=== PATIENT | male | born 1985 | race Hispanic/Latino ===

== ENCOUNTER 2021-04-14 18:20 | Inpatient (IN) | payer SELFPAY ==
[2021-04-14] MEDS ORDERED: Lorazepam 2 MG/ML VIAL ONE (18:37)
[2021-04-14 19:04] LABS: Hemoglobin 8.9 g/dL (14.0-18.0); Mean Corpuscular HGB CONC 30.9 g/dL (32.0-36.0); Mean Corpuscular Hemoglobin 24.4 pg (27.0-31.0); Mean Corpuscular Volume 78.8 fL (78.0-98.0); RBC Distribution Width 33.9 % (11.5-14.5); Red Blood Cell (RBC) Count 3.65 mill/uL (4.70-6.10); White Blood Cell (WBC) Count 7.5 thou/uL (4.8-10.8)
[2021-04-14 19:05] LABS: #Basophils 0.1 thou/uL (0.0-0.2); #Eosinphils 0.1 thou/uL (0.0-0.7); #Lymphocytes 2.3 thou/uL (1.20-3.40); #Monocytes 1.1 thou/uL (0.11-0.59); %Basophils 0.8 % (0.0-1.0); %Eosinophils 0.8 % (0.0-10.0); %Lymphocytes 30.8 % (21.0-51.0); %Monocytes 14.2 % (0.0-10.0); %Neutrophils 53.5 % (42.0-75.0)
[2021-04-14] MEDS ORDERED: Diazepam 5 MG TAB ONE (19:05)
[2021-04-14 19:19] LABS: Bilirubin Negative (Negative); Blood, Urine Negative (Negative); Clarity Clear (Clear); Glucose, Urine (Dipstick) Normal (Negative); Ketone, Urine Negative (Negative); Leukocyte Negative Leu/uL (Negative); Nitrite Negative (Negative); Protein, Urine (Dipstick) Negative (Neg-Trace); Specific Gravity, Urine 1.001 (1.002-1.036); Urobilinogen Normal mg/dL (Less than 2); pH, Urine 7.5 (5.0-9.0)
[2021-04-14 19:20] LABS: ALT (SGPT) 126 U/L (8-55); AST (SGOT) 240 U/L (5-34); Acetaminophen Less than 6.0 mcg/mL (10.0-30.0); Albumin 3.7 g/dL (3.5-5.0); Alcohol Less than 10 mg/dL (Less than 10); Alkaline Phosphatase 109 U/L (40-110); Anion Gap 20 mmol/L (10-20); BUN (Urea Nitrogen) Less than 4 mg/dL (8.9-20.6); Bilirubin, Total 1.2 mg/dL (0.2-1.2); Calc. Creatinine Clearance 0 mL/min (70-130); Calcium 9.1 mg/dL (7.8-10.44); Carbon Dioxide 18 mmol/L (22-29); Chloride 97 mmol/L (98-107); Globulin 3.3 g/dL (2.4-3.5); Glucose 112 mg/dL (70-105); Lipase 250 U/L (8-78); Potassium 3.6 mmol/L (3.5-5.1); Salicylate Less than 8.0 mg/dL (15.0-30.0); Sodium 131 mmol/L (136-145)
[2021-04-14 19:26] LABS: Anisocytosis MODERATE=16-30 cells (100X) (0-5/hpf); Hypochromia SLIGHT = 6-15 cells (100X) (0-5/hpf); MDiff Complete? YES; Mean Platelet Volume 6.5 fL (7.4-10.4); Ovalocytes SLIGHT = 2-5 cells (100X) (0-1/hpf); Platelet Count 174 thou/uL (130-400); Platelet Morphology Comment Appears Adequate; Polychromasia SLIGHT = 2-3 cells (100X) (0-2/hpf)
[2021-04-14 19:27] LABS: Amphetamine Not Detected (NotDetected); Barbiturates Screen Detected (NotDetected); Benzodiazepine Screen Not Detected (NotDetected); Cocaine Metabolite Screen Not Detected (NotDetected); Methadone Not Detected (NotDetected); Methamphetamine Not Detected (NotDetected); Opiate Screen Not Detected (NotDetected); Oxycodone Screen Not Detected (NotDetected); Phencyclidine (PCP) Not Detected (NotDetected); THC/Cannabinoid Screen Not Detected (NotDetected); Tricyclic Screen Not Detected (NotDetected)
[2021-04-14 19:37] LABS: Magnesium 0.9 mg/dL (1.6-2.6)
[2021-04-14] MEDS ORDERED: Magnesium 2 GM/50 ML BAG (IN WATER) ONE (19:44)
[2021-04-14] MEDS ORDERED: Thiamine HCl 200 MG/2 ML VIAL SLOW IVP SCH (20:00)
[2021-04-14] MEDS ORDERED: Folic Acid 1 MG, Multivitamins, Adult 10 ML in Dextrose 5 %-0.45 % NaCl 1,000 ML IV SCH (20:00)
[2021-04-14] MEDS ORDERED: Ondansetron PF 4 MG/2 ML Vial IVP PRN (21:07)
[2021-04-14] MEDS ORDERED: Acetaminophen 325 MG TAB PO PRN (21:07)
[2021-04-14] MEDS ORDERED: Ondansetron ODT 4 MG TAB PO PRN (21:07)
[2021-04-14] MEDS ORDERED: Acetaminophen 650 MG Suppository PR PRN (21:07)
[2021-04-14] MEDS ORDERED: Lorazepam 2 MG/ML VIAL SLOW IVP PRN (21:11)
[2021-04-14] MEDS ORDERED: Electrolyte Replacement Protocol 1 EACH FS PRN (21:15)
[2021-04-14] MEDS ORDERED: Magnesium 2 GM/50 ML 2 GM in Premix Bag 1 BAG IVPB SCH (21:30)
[2021-04-14 22:10] LABS: Lactic Acid 2.1 mmol/L (0.5-2.2)
[2021-04-14 22:44] VITALS: BMI 24.0
[2021-04-14] MEDS ORDERED: levETIRAcetam in NS 500 MG in Premix Bag 1 BAG IVPB SCH (23:30)
[2021-04-15 08:03] LABS: Magnesium 2.3 mg/dL (1.6-2.6)
[2021-04-15 08:04] LABS: Iron 18 ug/dL (65-175); Iron Binding Capacity, Total 350 mcg/dL (261-462)
[2021-04-15 08:06] LABS: Anion Gap 14 mmol/L (10-20); BUN (Urea Nitrogen) Less than 4 mg/dL (8.9-20.6); Calc. Creatinine Clearance 146 mL/min (70-130); Calcium 9.2 mg/dL (7.8-10.44); Carbon Dioxide 23 mmol/L (22-29); Chloride 105 mmol/L (98-107); Glucose 79 mg/dL (70-105); Iron 17 ug/dL (65-175); Iron Binding Capacity, Total 346 mcg/dL (261-462); Potassium 3.9 mmol/L (3.5-5.1); Sodium 138 mmol/L (136-145)
[2021-04-15 08:19] LABS: Ferritin 66.54 ng/mL (22-322)
[2021-04-15 08:29] LABS: #Eosinphils 0.1 thou/uL (0.0-0.7); #Lymphocytes 1.3 thou/uL (1.20-3.40); #Monocytes 0.5 thou/uL (0.11-0.59); #Neutrophils 1.6 thou/uL (1.40-6.50); %Basophils 1.1 % (0.0-1.0); %Eosinophils 1.7 % (0.0-10.0); %Lymphocytes 37.6 % (21.0-51.0); %Monocytes 13.7 % (0.0-10.0); %Neutrophils 45.9 % (42.0-75.0); Hemoglobin 9.8 g/dL (14.0-18.0); Mean Corpuscular HGB CONC 30.5 g/dL (32.0-36.0); Mean Corpuscular Hemoglobin 24.7 pg (27.0-31.0); Mean Corpuscular Volume 80.9 fL (78.0-98.0); Mean Platelet Volume 5.5 fL (7.4-10.4); Platelet Count 185 thou/uL (130-400); RBC Distribution Width 34.4 % (11.5-14.5); Red Blood Cell (RBC) Count 3.98 mill/uL (4.70-6.10); White Blood Cell (WBC) Count 3.6 thou/uL (4.8-10.8)
[2021-04-15 08:33] LABS: HBCM Index 0.12 S/CO (0-0.79); HBSAg Index 0.27 S/CO (0-0.99); Hep A IgM AB Non-Reactive (NonReactive); Hep A IgM S/CO 0.19 S/CO (0-0.79); Hep B Surf Ag Non-Reactive S/CO (NonReactive); Hep C IgG Ab Non-Reactive (NonReactive); Hep C Index 0.56 S/CO (0-0.79); Hepatitis B Core IgM Abs Non-Reactive (NonReactive)
[2021-04-15] MEDS: Enoxaparin Sodium 40 MG/0.4 ML SYRINGE SC SCH (08:46)
[2021-04-15] MEDS: levETIRAcetam in NS 500 MG in Premix Bag 1 BAG IVPB SCH ×2 (08:47→21:13)
[2021-04-15] MEDS ORDERED: Potassium Chloride 10 MEQ in Premix Bag 1 BAG IVPB SCH (13:30)
[2021-04-15] MEDS: Thiamine HCl 200 MG/2 ML VIAL SLOW IVP SCH (14:23)
[2021-04-15] MEDS: Multivitamins, Adult 10 ML, Folic Acid 1 MG in Dextrose 5 %-0.45 % NaCl 1,000 ML IV SCH (14:23)
[2021-04-15] MEDS: Dextrose 5 % And 0.9 % NaCl 1,000 ML IV SCH ×2 (14:38→21:14)
[2021-04-15 16:50] LABS: SARS-CoV-2 NAA Rapid Test Not Detected (NotDetected)
[2021-04-16] MEDS: Dextrose 5 % And 0.9 % NaCl 1,000 ML IV SCH ×3 (02:35→11:14)
[2021-04-16] MEDS: Enoxaparin Sodium 40 MG/0.4 ML SYRINGE SC SCH (08:14)
[2021-04-16] MEDS: levETIRAcetam in NS 500 MG in Premix Bag 1 BAG IVPB SCH (08:14)
[2021-04-16 16:01] VITALS: BP 121/74; TEMP 97.9
[2021-04-16] MEDS: Multivitamins, Adult 10 ML, Folic Acid 1 MG in Dextrose 5 %-0.45 % NaCl 1,000 ML IV SCH (17:45)
[2021-04-16] MEDS: Thiamine HCl 200 MG/2 ML VIAL SLOW IVP SCH (18:16)
== END 2021-04-16 19:13 | disposition home or self-care (01) | DRG 100 ==
LOC: ERS 18:20 → NEURO 20:23 → OBSVTOIN 04-16 09:27
PROVIDERS: ADMIT Student in an Organized Health Care Education/Training Program; ATTEND Internal Medicine
DX: G40.909 Epilepsy, unspecified, not intractable, without status epilepticus (principal); Z20.822 Contact with and (suspected) exposure to COVID-19; G93.41 Metabolic encephalopathy; E87.1 Hypo-osmolality and hyponatremia; E87.2 Acidosis; F10.239 Alcohol dependence with withdrawal, unspecified; E83.42 Hypomagnesemia; D64.9 Anemia, unspecified; R74.01 Elevation of levels of liver transaminase levels; K70.0 Alcoholic fatty liver; T42.6X6A Underdosing of other antiepileptic and sedative-hypnotic drugs, initial encounter; R79.89 Other specified abnormal findings of blood chemistry; Z79.899 Other long term (current) drug therapy; Z91.14 Patient's other noncompliance with medication regimen
CPT/HCPCS: 36415; 70450; 71045; 76705; 80048; 80053; 80074; 80306; 80307; 81003; 82248; 82550; 82728; 83540; 83550; 83605; 83690; 83735; 85025; 93005; 93306; 95712; 95819; 95957; J1650; J1953; J2060; J3411; J3475; J3480; J7042; U0002